=== PATIENT | female | born 1990 | race Caucasian/White ===

== ENCOUNTER → 2023-02-09 11:53 | Outpatient (BNVA) | payer OTHER, SELFPAY | PROVIDERS: PCP Internal Medicine; Visit Provider Internal Medicine Rheumatology | DX: Z79.899 Other long term (current) drug therapy (principal); R76.8 Other specified abnormal immunological findings in serum | CPT/HCPCS: 36415; 80076; 81001; 82565; 82570; 84156 ==

== ENCOUNTER → 2023-07-28 12:29 | Outpatient (BNVA) | payer OTHER, SELFPAY | PROVIDERS: PCP Internal Medicine; Visit Provider Internal Medicine Rheumatology | DX: M19.90 Unspecified osteoarthritis, unspecified site (principal); I73.00 Raynaud's syndrome without gangrene | CPT/HCPCS: 36415; 85651 ==